=== PATIENT | male | born 1990 | race Caucasian/White ===

== ENCOUNTER 2019-03-26 11:24 | Emergency (ER) | payer BC ==
[~2019-03-26] VITALS: Ht 175.3 cm; Wt 84.0 kg
[~2019-03-26 11:24] MED LIST: IBUP-1542 PO; ONDA4TAB14 PO
[2019-03-26 11:42] VITALS: BP 132/82; PULSE 78; RESP 18; Ht 175.3 cm; Wt 84.0 kg
[2019-03-26] MEDS ORDERED: ONDANSETRON (ODT) 4 MG TAB ODT STA (12:26)
[2019-03-26] MEDS ORDERED: IBUPROFEN 600 MG TAB PO ONE (12:30)
== END 2019-03-26 14:32 | disposition home or self-care (01) ==
LOC: FTE 11:24
DX: S16.1XXA Strain of muscle, fascia and tendon at neck level, initial encounter (principal); S09.90XA Unspecified injury of head, initial encounter; R51 Headache; V86.39XA Unspecified occupant of other special all-terrain or other off-road motor vehicle injured in traffic accident, initial encounter
CPT/HCPCS: 70450; 72125; 99284; Z7610